=== PATIENT | female | born 1940 | race Caucasian/White ===

== ENCOUNTER → 2017-09-08 | Outpatient (CLI) | payer MEDICARE ==
[2017-09-09 14:32] LABS: Stool Occult Bld Immuno 1 Negative (NEGATIVE)
== END ==
LOC: LAB SHORT 08:30 → LAB EV 08:30
PROVIDERS: Physician Assistant
DX: Z12.11 Encounter for screening for malignant neoplasm of colon (principal)
CPT/HCPCS: G0328

== ENCOUNTER 2019-04-07 10:43 | Observation (INO) | payer MEDICARE ==
[~2019-04-07] VITALS: Ht 170.2 cm; Wt 71.3 kg
[2019-04-07] MEDS ORDERED: CLOP75 PO (10:54)
[2019-04-07] MEDS ORDERED: HYDCHL12.5 PO (10:54)
[2019-04-07] MEDS ORDERED: Simvastatin40 MG PO (10:55)
[2019-04-07] MEDS ORDERED: LEVSOD112 PO (10:55)
[2019-04-07] MEDS ORDERED: IRBE75 PO (10:55)
[2019-04-07 11:20] LABS: BASOPHILS ABSOLUTE AUTO 0.09 K/mm3 (0.00-0.23); BASOPHILS PERCENT AUTO 1 % (0-2); EOSINOPHILS ABSOLUTE AUTO 0.21 K/mm3 (0.00-0.68); EOSINOPHILS PERCENT AUTO 2 % (0-6); Hematocrit 41.7 % (33.0-51.0); Hemoglobin 14.1 g/dL (11.5-16.0); IMMATURE GRAN ABSOLUTE AUTO 0.03 K/mm3 (0.00-0.10); IMMATURE GRAN PERCENT AUTO 0 % (0-1); LYMPHOCYTES ABSOLUTE AUTO 5.38 K/mm3 (0.84-5.20); LYMPHOCYTES PERCENT AUTO 43 % (21-46); MONOCYTES ABSOLUTE AUTO 0.87 K/mm3 (0.16-1.47); MONOCYTES PERCENT AUTO 7 % (4-13); Mean Corpuscular HGB 30.9 pg (26.0-34.0); Mean Corpuscular HGB Conc 33.8 g/dL (31.5-36.5); Mean Corpuscular Volume 91 fL (80-100); Mean Platelet Volume 9.4 fL (9.1-12.4); NEUTROPHILS PERCENT AUTO 48 % (41-73); Platelet Count 317 K/mm3 (150-400); RDW Coefficient Variation 13.1 % (11.7-14.2); RDW Standard Deviation 44.1 fL (35.1-46.3); Red Blood Cell Count 4.56 M/mm3 (3.80-5.20); White Blood Cell Count 12.58 K/mm3 (4.00-11.30)
[2019-04-07 11:41] LABS: Alanine Aminotransfer (ALT/SGP 23 U/L (12-78); Albumin/Globulin Ratio 1.1 (0.8-1.8); Alk Phos 61 U/L (50-136); Anion Gap 10 mmol/L (6-16); Aspartate Aminotrans (AST/SGOT 13 U/L (12-37); Bilirubin, Total 0.6 mg/dL (0.1-1.0); Blood Urea Nitrogen 17 mg/dL (8-24); Bun/Creatinine Ratio 30.7 (12.0-20.0); CO2, Blood 26 mmol/L (21-32); Calcium, Blood 9.3 mg/dL (8.5-10.1); Chloride, Blood 102 mmol/L (98-108); Creatinine, Blood 0.55 mg/dL (0.40-1.00); Globulin, Blood 3.5 g/dL (2.2-4.0); Glomerular Filtration Rate >60 (60-); Glucose, Blood 98 mg/dL (70-99); Potassium, Blood 3.9 mmol/L (3.5-5.5); Sodium, Blood 138 mmol/L (136-145); Total Protein, Blood 7.5 g/dL (6.4-8.2); Troponin I <0.015 ng/mL (0.000-0.040)
[2019-04-07] MEDS ORDERED: OMEPRAZOLE20 MG PO (12:45)
--- NOTE | 2019-04-07 14:10 | NUR ---
PT ARRIVED TO THE MEDICAL FLOOR FROM THE ER A/OX3, PLEASANT AND COOPERATIVE, THE PT APPEARS TO BE BREATHING BEASILY ON RA AT THIS TIME, THE PT DENIES ANY C/P AT THIS TIME, THE PT WAS ORIENTED TO THE ROOM LAYOUT AND CALL SYSTEM, CALL LIGHT IN REACH, JOSUE HOSE APPLIED ORDERED, THE PT RECIEVED HER RESTING PORTION OF THE STRESS TEST AND SO FAR HAS TOLERATED IT WELL, PT ANSWERS QUESTIONS APPROPRIATLY, PT IS UP WITH MINIMAL ASSIST, FAMILY AT THE BEDSIDE, WILL CONTINUE TO MONITOR AND ASSESS FOR CHANGES
[2019-04-07] MEDS ORDERED: ASPI81CH PO (14:41)
[2019-04-07] MEDS ORDERED: ABAT250V (14:41)
[2019-04-08 01:06] LABS: BASOPHILS ABSOLUTE AUTO 0.07 K/mm3 (0.00-0.23); BASOPHILS PERCENT AUTO 1 % (0-2); EOSINOPHILS ABSOLUTE AUTO 0.32 K/mm3 (0.00-0.68); EOSINOPHILS PERCENT AUTO 4 % (0-6); Hematocrit 38.5 % (33.0-51.0); Hemoglobin 12.7 g/dL (11.5-16.0); IMMATURE GRAN ABSOLUTE AUTO 0.01 K/mm3 (0.00-0.10); IMMATURE GRAN PERCENT AUTO 0 % (0-1); LYMPHOCYTES ABSOLUTE AUTO 2.94 K/mm3 (0.84-5.20); LYMPHOCYTES PERCENT AUTO 37 % (21-46); MONOCYTES ABSOLUTE AUTO 0.91 K/mm3 (0.16-1.47); MONOCYTES PERCENT AUTO 12 % (4-13); Mean Corpuscular HGB 30.7 pg (26.0-34.0); Mean Corpuscular Volume 93 fL (80-100); Mean Platelet Volume 9.3 fL (9.1-12.4); NEUTROPHILS ABSOLUTE AUTO 3.69 K/mm3 (1.96-9.15); NEUTROPHILS PERCENT AUTO 47 % (41-73); Platelet Count 258 K/mm3 (150-400); RDW Coefficient Variation 13.2 % (11.7-14.2); RDW Standard Deviation 45.2 fL (35.1-46.3); Red Blood Cell Count 4.14 M/mm3 (3.80-5.20); White Blood Cell Count 7.94 K/mm3 (4.00-11.30)
[2019-04-08 01:53] LABS: Anion Gap 6 mmol/L (6-16); Blood Urea Nitrogen 27 mg/dL (8-24); Bun/Creatinine Ratio 36.9 (12.0-20.0); CO2, Blood 29 mmol/L (21-32); Calcium, Blood 8.5 mg/dL (8.5-10.1); Chloride, Blood 107 mmol/L (98-108); Creatinine, Blood 0.73 mg/dL (0.40-1.00); Glomerular Filtration Rate >60 (60-); Glucose, Blood 98 mg/dL (70-99); Potassium, Blood 3.9 mmol/L (3.5-5.5); Sodium, Blood 142 mmol/L (136-145)
--- NOTE | 2019-04-08 04:32 | NUR ---
SHIFT SUMMARY: PT IS ALERT AND ORIENTED. PT IS CALM AND COOPERATIVE WITH CARE. PT CALLS APPROPRIATELY. PT IS INDPENDENT IN THE ROOM. PT TO HAVE SECOND PART OF STRESS TEST THIS AM, NPO AFTER MIDNIGHT ORDERED. PT DENIES PAIN, NAUSEA, VOMITING, AND SOB. PT SLEPT MUCH OF THE NIGHT. NO ACUTE CHANGES. WILL CONTINUE TO MONITOR.
--- NOTE | 2019-04-08 18:07 | NUR ---
PT IS A/OX3, PLEASANT AND COOPERATIVE, THE PT IS UP IND IN THE ROOM THE PT REPORTED ONLY MILD LEFT SIDED C/P, THE PT COMPLETED A STRESS TODAY, THE PT IS AWAITING POSSIBLE ANGIOGRAM NOEW IN THE AM AND IS TO BE NPO AFTER MN,DR. REYNA CONSULTED ON THE PT AND SAID THAT HE WOULD CONTACT DR. CM, THE PT APPEARS TO BE BREATHING EASILY ON RA AT THIS TIME, MULTIPLE FAMILY AT THE BEDSIDE T/O THE DAY, CALL LIGHT IN REACH
--- NOTE | 2019-04-09 05:18 | NUR ---
SHIFT SUMMARY: PT IS ALERT AND ORIENTED. PT IS CALM, FRIENDLY, AND COOPERATIVE WITH CARE. PT CALLS APPROPRIATELY. PT IS INDPENDENT IN THE ROOM. PT KEPT NPO AFTER MIDNIGHT FOR ANGIOGRAM THIS AM. PT SLEPT MUCH OF THE NIGHT WHEN NOT DISTURBED. PT DENIES PAIN, NAUSEA, VOMITING, AND SOB. NO ACUTE CHANGES OVERNIGHT. WILL CONTINUE TO MONITOR.
--- NOTE | 2019-04-09 10:25 | NUR ---
PT UPDATE... PT ARRIVED FROM [facility] AT 1015. PT IS A&Ox4 WITH TR BAND ON THE RIGHT WRIST. BLEEDING WAS NOTED TO THE SITE, 1ML OF AIR WAS PUT INTO TR BAND, THE AREA WAS CLEANED. PT'S VS STABLE AT THIS TIME, PT IS SINUS JAMESON AT 53. PT'S AT THE BEDSIDE. WILL CONTINUE TO MONITOR.
--- NOTE | 2019-04-09 18:25 | NUR ---
SHIFT SUMMARY. NO ACUTE CHANGES NOTED, PT'S VS STABLE. SOME BLEEDING IS NOTED AT THE ANGIO SITE, NO SWELLING OR HEMATOMA IS NOTED. PT IS TO BE D/C'D HOME 1 HOUR AFTER TR BAND IS DEFLATED. PT HAS BEEN UP TO THE BATHROOM TO VOID MULTIPLE TIMES. PT'S AT THE BEDSIDE. CALL LIGHT IN REACH, BED IS LOCKED AND LOW WILL CONTINUE TO MONITOR.
[2019-04-09] MEDS ORDERED: AMLO10 PO (19:51)
[2019-04-09] MEDS ORDERED: Isosorbide Mono30 MG PO (19:52)
[2019-04-09] MEDS ORDERED: NITR.4SL PO (19:58)
--- NOTE | 2019-04-09 20:59 | NUR ---
CALLED OM AT 1900 TO CHECK COMPLETELY DEFLATED TR SITE AND NOTED A VERY TINY BUBBLING OF A START OF A HEMATOMA BENEATH PLASTIC AREA OF TR BAND EDGE. TR BAND DEFLATED FOR APPROX 45 MIN. UNABLE TO SEE ANY HEMATOMA AT ANGIO ENTRANCE. SCANT OOZE FROM EARLIER NOTED.REMOVED TR BAND. AND CLEANED SITE TO DETERMINE ANY EXTENSION OF TINY HEMATOMA. HELD PRESSURE AT BOTH SPOTS INCLUDING TINY HEMATOMA DISTAL TO SITE ENTRANCE. PRESSURE HELD 15 MINUTES BEFORE RECHECK
== END 2019-04-09 20:51 | disposition home or self-care (01) ==
LOC: ER 10:43 → MEDS 10:44 → PCU 04-09 10:10 → MEDS 04-09 10:13 → PCU 04-09 20:51
PROVIDERS: Emergency Medicine; ADMIT Hospitalist
DX: I21.09 ST elevation (STEMI) myocardial infarction involving other coronary artery of anterior wall (principal); I25.110 Atherosclerotic heart disease of native coronary artery with unstable angina pectoris; I10 Essential (primary) hypertension; E78.5 Hyperlipidemia, unspecified; E03.9 Hypothyroidism, unspecified; K21.9 Gastro-esophageal reflux disease without esophagitis; F17.210 Nicotine dependence, cigarettes, uncomplicated; Z88.5 Allergy status to narcotic agent; Z79.899 Other long term (current) drug therapy; Z79.01 Long term (current) use of anticoagulants
CPT/HCPCS: 36415; 71046; 78452; 80048; 80053; 84484; 85025; 93005; 93010; 93017; 93306; 93458; 96372; 99152; 99153; 99285-25; A9500; C1769; C1894; G0378; J0690; J1644; J1650; J2250; J2785; J3010; J7030; Q9967

== ENCOUNTER 2019-06-05 10:13 | Emergency (ER) | payer MEDICARE ==
[~2019-06-05] VITALS: Ht 162.6 cm; Wt 71.7 kg
[~2019-06-05 10:13] MED LIST: ABAT250V; AMLO10 PO; ASPI81CH PO; CLOP75 PO; HYDCHL12.5 PO; IRBE75 PO; Isosorbide Mono30 MG PO; LEVSOD112 PO; NITR.4SL PO; OMEPRAZOLE20 MG PO; Simvastatin40 MG PO
[2019-06-05 11:09] LABS: BASOPHILS ABSOLUTE AUTO 0.08 K/mm3 (0.00-0.23); BASOPHILS PERCENT AUTO 1 % (0-2); EOSINOPHILS ABSOLUTE AUTO 0.27 K/mm3 (0.00-0.68); EOSINOPHILS PERCENT AUTO 4 % (0-6); Hematocrit 43.8 % (33.0-51.0); Hemoglobin 14.6 g/dL (11.5-16.0); IMMATURE GRAN ABSOLUTE AUTO 0.01 K/mm3 (0.00-0.10); IMMATURE GRAN PERCENT AUTO 0 % (0-1); LYMPHOCYTES ABSOLUTE AUTO 2.56 K/mm3 (0.84-5.20); LYMPHOCYTES PERCENT AUTO 34 % (21-46); MONOCYTES ABSOLUTE AUTO 0.57 K/mm3 (0.16-1.47); MONOCYTES PERCENT AUTO 8 % (4-13); Mean Corpuscular HGB 30.9 pg (26.0-34.0); Mean Corpuscular HGB Conc 33.3 g/dL (31.5-36.5); Mean Corpuscular Volume 93 fL (80-100); Mean Platelet Volume 9.8 fL (9.1-12.4); NEUTROPHILS ABSOLUTE AUTO 4.06 K/mm3 (1.96-9.15); NEUTROPHILS PERCENT AUTO 54 % (41-73); Platelet Count 300 K/mm3 (150-400); RDW Coefficient Variation 12.9 % (11.7-14.2); RDW Standard Deviation 43.9 fL (35.1-46.3); Red Blood Cell Count 4.73 M/mm3 (3.80-5.20); White Blood Cell Count 7.55 K/mm3 (4.00-11.30)
[2019-06-05 11:31] LABS: Alanine Aminotransfer (ALT/SGP 19 U/L (12-78); Alk Phos 61 U/L (50-136); Anion Gap 6 mmol/L (6-16); Aspartate Aminotrans (AST/SGOT 26 U/L (12-37); Bilirubin, Total 0.7 mg/dL (0.1-1.0); Blood Urea Nitrogen 17 mg/dL (8-24); Bun/Creatinine Ratio 24.3 (12.0-20.0); CO2, Blood 27 mmol/L (21-32); Calcium, Blood 9.5 mg/dL (8.5-10.1); Chloride, Blood 102 mmol/L (98-108); Globulin, Blood 3.9 g/dL (2.2-4.0); Glomerular Filtration Rate >60 (60-); Glucose, Blood 102 mg/dL (70-99); Potassium, Blood 4.6 mmol/L (3.5-5.5); Sodium, Blood 135 mmol/L (136-145); Total Protein, Blood 7.9 g/dL (6.4-8.2)
[2019-06-05 11:33] LABS: Troponin I <0.015 ng/mL (0.000-0.040)
[2019-06-05] MEDS ORDERED: RANOLAZINE ER500 M1 PO (12:07)
== END 2019-06-05 14:54 | disposition home or self-care (01) ==
LOC: ER 10:13
PROVIDERS: Physician Assistant
DX: R00.2 Palpitations (principal); I25.2 Old myocardial infarction; F17.200 Nicotine dependence, unspecified, uncomplicated; Z88.1 Allergy status to other antibiotic agents; Z88.5 Allergy status to narcotic agent; Z88.8 Allergy status to other drugs, medicaments and biological substances; Z79.899 Other long term (current) drug therapy; Z79.82 Long term (current) use of aspirin
CPT/HCPCS: 36415; 71046; 80053; 83690; 84443; 84484; 85025; 93005; 93010; 99285-25

== ENCOUNTER 2022-11-16 07:46 | Day surgery (SDC) | payer OTHER ==
[~2022-11-16] VITALS: Ht 162.6 cm; Wt 72.7 kg
[~2022-11-16 07:46] MED LIST changes: +RANOLAZINE ER500 M1 PO
[2022-11-16] MEDS ORDERED: BETA.05TO (08:01)
[2022-11-16] MEDS ORDERED: ALBU90OI (08:01)
[2022-11-16] MEDS ORDERED: ALEN70 (08:01)
--- NOTE | 2022-11-16 08:07 | NUR ---
11/16/22 0807 Hollie Omalley 0801 TETRACAINE TO RIGHT EYE 0803 PLEDGET TO RIGHT EYE BY [email or web address]
== END 2022-11-16 09:41 | disposition home or self-care (01) ==
LOC: ORSCSDS 07:46
PROVIDERS: Student in an Organized Health Care Education/Training Program
PROC: 08DJ3ZZ Extraction of Right Lens, Percutaneous Approach (ICD-10-PCS; principal; 2022-11-16 09:00)
DX: H25.11 Age-related nuclear cataract, right eye (principal); I10 Essential (primary) hypertension; I25.2 Old myocardial infarction; I25.10 Atherosclerotic heart disease of native coronary artery without angina pectoris; K21.9 Gastro-esophageal reflux disease without esophagitis; E78.5 Hyperlipidemia, unspecified; J44.9 Chronic obstructive pulmonary disease, unspecified; E03.9 Hypothyroidism, unspecified; F17.210 Nicotine dependence, cigarettes, uncomplicated; Z79.82 Long term (current) use of aspirin; Z79.899 Other long term (current) drug therapy
CPT/HCPCS: J2001; J2250; J3010; J7040; V2632